=== PATIENT | male | born 1970 ===

== ENCOUNTER 2018-07-19 10:53 | Emergency (ER) | payer BC ==
[2018-07-19] MEDS ORDERED: TORADOL IM ONE (12:17)
--- NOTE | 2018-07-19 12:22 | Emergency Department Report ---
ED Back Pain/Injury HPI - General Chief Complaint: Back Pain/Injury Stated Complaint: BACK PAIN/SPASM Time Seen by Provider: 07/19/18 12:07 Source: patient Limitations: No Limitations - History of Present Illness Initial Comments: This is a 47-year-old -[place] male who presents with low back pain for one week. Patient states he lifted a 50 pound box while at work this morning and his back locked. Pain increased from usual after lifting box at work. He reports pain is 10 out of 10 on pain scale that is a dull achy sensation. He reports numbness and tingling to fingers on right hand. Her reports pain to back as worse with movement. He denies change in voiding or bowel pattern, swelling, erythema, weakness, or paresthesia. MD Complaint: back pain Onset/Timin -: week(s) Similar Symptoms Previously: No Place: work Radiation: none Severity: severe Severity scale (0 -10): 10 Quality: dull, aching Consistency: intermittent Improves With: none Worsens With: movement, walking Context: while lifting Associated Symptoms: denies other symptoms - Related Data Previous Rx's Medication Instructions Recorded Last Taken Type Ibuprofen [Motrin 800 MG tab] 800 mg PO Q8HR PRN #12 tablet 07/19/18 Unknown Rx methOCARBAMOL [Robaxin TAB] 500 mg PO BID #10 tab 07/19/18 Unknown Rx Allergies Allergy/AdvReac Type Severity Reaction Status Date / Time No Known Allergies Allergy Unverified 07/19/18 11:17 ED Review of Systems ROS: Stated complaint: BACK PAIN/SPASM Other details as noted in HPI Constitutional: denies: chills, fever Respiratory: denies: cough, shortness of breath, wheezing Cardiovascular: denies: chest pain, palpitations Gastrointestinal: denies: abdominal pain, nausea, diarrhea Musculoskeletal: back pain (low back pain). denies: joint swelling, arthralgia Skin: denies: rash, lesions Neurological: numbness (right fingers). denies: headache, weakness, paresthesias Psychiatric: denies: anxiety, depression ED Back Pain Physical Exam - Exam General: Vital signs noted. No distress. Alert and acting appropriately. ED Course Vital Signs 07/19/18 11:17 Temperature 98.1 F Pulse Rate 90 Respiratory 20 Rate Blood Pressure 176/102 O2 Sat by Pulse 97 Oximetry ED Medical Decision Making - Radiology Data Radiology results: report reviewed, image reviewed FINAL REPORT EXAM: XR SPINE LUMBOSACRAL 2-3V HISTORY: low back pain TECHNIQUE: 3 views of the lumbar spine PRIORS: None. FINDINGS: Vertebral compression fracture: None Anterolisthesis: None Retrolisthesis: L4-5 trace, L5-S1 trace Disc narrowing: L5-S1 slight posteriorly Degenerative change: Multilevel at the vertebral endplates and facet joints. IMPRESSION: No acute skeletal pathology Multilevel degenerative changes and trace retrolisthesis Slight posterior disc narrowing at L5-S1 - Medical Decision Making Patient was examined by me. Vitals are normal and patient is in no acute distress. Obtained a urinalysis and x-ray of L-spine. X-ray dictated by radiologist and report reviewed by myself. No acute skeletal pathology. Multilevel degenerative changes and trace retrolisthesis. Slight posterior disc narrowing at L5-S1 Patient informed of results. Start ibuprofen and robaxin for muscle strain. Referral to orthopedic surgery for continuous care. Plan discussed with patient to discharge home and treat outpatient. He agrees with ER plan. Patient discharged home in stable condition. Follow up with PCP in 2-3 days. Critical care attestation.: If time is entered above; I have spent that time in minutes in the direct care of this critically ill patient, excluding procedure time. ED Disposition Clinical Impression: Degenerative disc disease at L5-S1 level, Strain of muscle, fascia and tendon of lower back, initial encounter Low back pain Qualifiers: Chronicity: acute Back pain laterality: right Sciatica presence: without sciatica Qualified Code(s): M54.5 - Low back pain Disposition: TO HOME OR SELFCARE Is pt being admited?: No Does the pt Need Aspirin: No Condition: Stable Instructions: Arthralgia (ED), Core Strengthening Exercises (GEN), Low Back Strain (ED) Additional Instructions: Rest Use ice or heat on affected area for 20 minutes and off for 2 hours. Take pain medication every 6 hours as needed for pain. Don't drive or operate heavy machinery while taking muscle relaxers because they may cause drowsiness. Follow up with Primary Care Provider in 2-3 days. Prescriptions: Ibuprofen [Motrin 800 MG tab] 800 mg PO Q8HR PRN #12 tablet PRN Reason: Pain , Severe (7-10) methOCARBAMOL [Robaxin TAB] 500 mg PO BID #10 tab Referrals: BEATRIZ ROGERS MD [Staff Physician] - 3-[address] [facility] [Provider Group] - 3-5 Days [facility] [Provider Group] - 3-5 Days [facility] [Provider Group] - 3-5 Days Forms: Work/School Release Form(ED) Time of Disposition: 13:28
--- NOTE | 2018-07-19 13:16 | XRay Report ---
FINAL REPORT EXAM: XR SPINE LUMBOSACRAL 2-3V HISTORY: low back pain TECHNIQUE: 3 views of the lumbar spine PRIORS: None. FINDINGS: Vertebral compression fracture: None Anterolisthesis: None Retrolisthesis: L4-5 trace, L5-S1 trace Disc narrowing: L5-S1 slight posteriorly Degenerative change: Multilevel at the vertebral endplates and facet joints. IMPRESSION: No acute skeletal pathology Multilevel degenerative changes and trace retrolisthesis Slight posterior disc narrowing at L5-S1
[2018-07-19] MEDS ORDERED: CATAPRES PO ONE (13:42)
[2018-07-19 14:49] VITALS: BP 169/114
== END 2018-07-19 15:40 | disposition home or self-care (01) ==
LOC: ED 10:53
DX: S39.012A Strain of muscle, fascia and tendon of lower back, initial encounter (principal); M51.37 Other intervertebral disc degeneration, lumbosacral region; X50.0XXA Overexertion from strenuous movement or load, initial encounter; Y93.89 Activity, other specified; Y99.0 Civilian activity done for income or pay; Y92.69 Other specified industrial and construction area as the place of occurrence of the external cause
CPT/HCPCS: 72100; 96372; 99283; J1885